=== PATIENT | male | born 1995 | race Caucasian/White ===

== ENCOUNTER 2018-12-19 21:01 | Emergency (ER) | payer MEDICAID ==
[~2018-12-19] VITALS: Ht 188 cm; Wt 86.2 kg
[2018-12-19] MEDS ORDERED: SODIUM CHLORIDE 0.9% 1,000 ML IV ONE (21:45)
[2018-12-19] MEDS ORDERED: ONDANSETRON HCL 4 MG/2 ML VIAL IV ONE (21:45)
[2018-12-19 21:47] LABS: Hemoglobin 19.4 g/dL (13.5-17.5); Mean Corpuscular Hemoglobin 27.7 pg (28.0-32.0); Mean Corpuscular Hgb Conc. 33.3 g/dL (32.0-36.0); Mean Corpuscular Volume 83.2 fL (80.0-100.0); Platelet Count (auto) 535 10^3/uL (140-450); Red Cell Distribution Width 14.1 % (11.8-14.3); White Blood Cell 28.4 10^3/uL (4.4-10.8)
[2018-12-19 21:52] LABS: Hematocrit 58.2 % (41.0-53.0)
[2018-12-19 21:53] LABS: Basophils % (manual) 0 (0.0-2.0); Blast Cells 0; Eosinophils % (manual) 0 (0-7); Metamyelocytes % 0; Myelocytes % 0; Promyelocytes % 0; Reactive Lymphocytes 0
[2018-12-19 22:00] LABS: Albumin 5.6 g/dL (3.4-5.0); BUN/Creatinine Ratio 6.6; Calcium 10.2 mg/dL (8.5-10.1)
[2018-12-19 22:07] LABS: Lactate Dehydrogenase 230 U/L (87-241); Lipase 407 U/L (73-393)
[2018-12-19 22:42] LABS: Band Neutrophils % (manual) 5; Lymphocytes % (manual) 8 (10.0-50.0); Monocytes % (manual) 11 (0-12)
[2018-12-19] MEDS ORDERED: cefTRIAXone 1GM/50ML D5W 50 ML IV ONE (23:00)
[2018-12-19] MEDS ORDERED: IOHEXOL 350 MG/ML 100ML IJ ONE (23:33)
[2018-12-19] MEDS ORDERED: GASTROGRAFIN 30 ML SOL ONE (23:33)
[2018-12-20] MEDS ORDERED: LEVOFLOXACIN 750MG 150 ML IV ONE (00:45)
[2018-12-20] MEDS ORDERED: SODIUM CHLORIDE 0.9% 2,000 ML IV ONE (02:30)
[2018-12-20] MEDS ORDERED: ONDANSETRON HCL 4 MG/2 ML VIAL IV ONE (04:00)
[2018-12-20 04:27] LABS: Urine Amorphous Crystal FEW /hpf (None Seen); Urine Bacteria FEW /hpf (None Seen); Urine Blood 2+ /uL (Negative); Urine Hyaline Cast MOD /lpf (0 - 2); Urine Mucus FEW (None Seen); Urine Specific Gravity 1.016 (1.001-1.035); Urine WBC 4 /hpf (0 - 3)
[2018-12-20 04:41] LABS: Alcohol, Urine < 3.0 mg/dL (0-5); Amphetamine Screen, Urine NEGATIVE (NEGATIVE); Barbiturate Scree,Urine NEGATIVE (NEGATIVE); Benzodiazephine Screen, Urine NEGATIVE (NEGATIVE); Cannabinoid Screen, Urine POSITIVE (NEGATIVE); Cocaine Screen, Urine NEGATIVE (NEGATIVE); Opiate Scree,Urine NEGATIVE (NEGATIVE)
[2018-12-20 04:48] LABS: Phencyclidine Screen, Urine NEGATIVE (NEGATIVE)
[2018-12-20 04:49] VITALS: BP 128/85
== END 2018-12-20 04:56 | disposition short-term general hospital (02) ==
LOC: ER 21:01
DX: R06.02 Shortness of breath (principal); R10.9 Unspecified abdominal pain; R11.2 Nausea with vomiting, unspecified; R53.1 Weakness
CPT/HCPCS: 36415; 51702; 71250; 74176; 80053; 80307; 81001; 83605; 83615; 83690; 84484; 85007; 85027; 87040; 93005; 96361; 96365; 96367; 96375; 96376; 99285; J0696; J1956; J2405; J7030; Q9963

== ENCOUNTER 2020-02-06 21:21 | Inpatient (IN) | payer MEDICAID ==
[~2020-02-06] VITALS: Ht 188 cm; Wt 77.1 kg
[~2020-02-06 21:21] MED LIST: VANCOMYCIN 1GM/250ML 250 ML IV ONE
[2020-02-06] MEDS ORDERED: ACETAMINOPHEN 325 MG TAB PO ONE (21:45)
[2020-02-06] MEDS ORDERED: SODIUM CHLORIDE 0.9% 2,300 ML IV ONE (22:15)
[2020-02-06] MEDS ORDERED: VANCOMYCIN PER PHARMACY 0 MG IV SCH (22:30)
[2020-02-06 23:23] LABS: Basophils # (auto) 0 10 ^3/uL (0-0.2); Basophils % (auto) 0.4 % (0.0-2.0); Eosinophils # (auto) 0 10 ^3/uL (0-0.8); Eosinophils % (auto) 0.4 % (0.0-7.0); Lymphocytes # (auto) 0.2 10 ^3/uL (0.4-5.4); Lymphocytes % (auto) 2.6 % (10.0-50.0); Mean Corpuscular Hemoglobin 27.2 pg (28.0-32.0); Mean Corpuscular Hgb Conc. 32.6 g/dL (32.0-36.0); Mean Corpuscular Volume 83.4 fL (80.0-100.0); Monocytes # (auto) 0.2 10 ^3/uL (0-1.3); Monocytes % (auto) 2.8 % (0.0-12.0); Neutrophils # (auto) 5.6 10 ^3/uL (1.6-8.6); Neutrophils % (auto) 93.8 % (37.0-80.0); Platelet Count (auto) 183 10^3/uL (140-450); Red Cell Distribution Width 16.4 % (11.8-14.3)
[2020-02-06 23:38] LABS: INR 1.18 (0.9-1.15); Partial Thromboplastin Time 26.1 sec (23.0-31.2)
[2020-02-06 23:41] LABS: Acetaminophen < 2.0 ug/mL (10-30); Albumin 2.9 g/dL (3.4-5.0); Anion Gap 9 (5-15); Blood Urea Nitrogen 10 mg/dL (7-18); Calcium 8.7 mg/dL (8.5-10.1); Carbon Dioxide 24 mmol/L (21-32); Chloride 106 mmol/L (98-107); Glucose 161 mg/dL (74-106); Salicylate < 1.7 mg/dL (2.8-20.0); Sodium 139 mmol/L (136-145)
[2020-02-06 23:42] LABS: Alanine Aminotransferase 466 U/L (16-61); Aspartate Aminotransferase 674 U/L (15-37); BUN/Creatinine Ratio 6.8; Blood Alcohol < 3.0 mg/dL (0-5); GFR African American 77 mL/min; GFR Non-African American 64 mL/min
[2020-02-06 23:47] LABS: Alkaline Phosphatase 125 U/L (45-117); Bilirubin, Total 0.9 mg/dL (0.2-1.0); Creatine Kinase IFCC 662 U/L (39-308); Total Protein 5.8 g/dL (6.4-8.2)
[2020-02-07] MEDS ORDERED: PIPERACILLIN-TAZOB 3.375GM 100 ML IV SCH
[2020-02-07 00:26] LABS: Lactic Acid w/Reflex 4.2 mmol/L (0.4-2.0)
[2020-02-07 01:35] LABS: Urine Bacteria NONE SEEN /hpf (None Seen); Urine Blood TRACE /uL (Negative); Urine Hyaline Cast MANY /lpf (0 - 2); Urine Mucus FEW (None Seen); Urine Specific Gravity 1.013 (1.001-1.035); Urine WBC 3 /hpf (0 - 3)
[2020-02-07 01:47] LABS: Alcohol, Urine < 3.0 mg/dL (0-10); Amphetamine Screen, Urine NEGATIVE (NEGATIVE); Barbiturate Scree,Urine NEGATIVE (NEGATIVE); Benzodiazephine Screen, Urine POSITIVE (NEGATIVE); Cannabinoid Screen, Urine POSITIVE (NEGATIVE)
[2020-02-07 02:13] LABS: Cocaine Screen, Urine NEGATIVE (NEGATIVE); Opiate Scree,Urine NEGATIVE (NEGATIVE); Phencyclidine Screen, Urine NEGATIVE (NEGATIVE)
[2020-02-07] MEDS ORDERED: ENOXAPARIN SOD 80 MG/0.8ML SYRINGE SC ONE (03:45)
[2020-02-07] MEDS ORDERED: POTASSIUM CHL 20MEQ/100ML 100 ML IV ONE (04:00)
[2020-02-07] MEDS ORDERED: PIPERACILLIN-TAZOB 2.25GM 50 ML IV SCH (06:00)
[2020-02-07] MEDS ORDERED: SODIUM CHLORIDE 0.9% 1,000 ML IV SCH (06:23)
[2020-02-07] MEDS ORDERED: ONDANSETRON HCL 4 MG/2 ML VIAL IV PRN (06:30)
[2020-02-07] MEDS ORDERED: MORPHINE SULF INJ 2 MG/ML SYRINGE 1ML IV PRN (06:30)
[2020-02-07] MEDS ORDERED: NITROGLYCERIN 0.4 MG SL TAB SL PRN (06:30)
[2020-02-07] MEDS ORDERED: IOHEXOL 350 MG/ML 100ML IJ ONE ×2 (07:24→08:20)
[2020-02-07 08:37] LABS: Albumin 2.8 g/dL (3.4-5.0); Calcium 8.7 mg/dL (8.5-10.1); Potassium 4.3 mmol/L (3.5-5.1)
[2020-02-07 08:39] LABS: Magnesium 1.7 mg/dL (1.6-2.6)
[2020-02-07 08:41] LABS: BUN/Creatinine Ratio 11.4; Bilirubin, Total 0.9 mg/dL (0.2-1.0); Total Protein 5.9 g/dL (6.4-8.2)
[2020-02-07 08:48] LABS: CRP High Sensitivity 8.53 mg/dL (< 0.3)
[2020-02-07] MEDS: ASPirin 81 mg TAB PO SCH (10:34)
[2020-02-07] MEDS: CHOLECALCIFEROL (VITD3) 2,000 UNIT CAP PO SCH (10:39)
[2020-02-07] MEDS: ZINC SULFATE 220mg CAP or TAB PO SCH (10:39)
[2020-02-07] MEDS: ASCORBIC ACID 1,000 MG TAB PO SCH (10:40)
[2020-02-07] MEDS: FAMOTIDINE 20 MG TAB PO SCH ×2 (10:40→22:00)
[2020-02-07] MEDS: ENOXAPARIN SOD 40 MG/0.4 ML SYRINGE SC SCH (11:05)
[2020-02-07] MEDS: DOXYCYCLINE 100MG/250ML 250 ML IV SCH ×2 (11:06→23:10)
[2020-02-07] MEDS: PIPERACILLIN-TAZOB 3.375GM 100 ML IV SCH ×2 (14:39→18:53)
[2020-02-07] MEDS ORDERED: ATORVASTATIN 20 MG TAB PO SCH (22:00)
[2020-02-08] MEDS: PIPERACILLIN-TAZOB 3.375GM 100 ML IV SCH ×4 (01:29→18:00)
[2020-02-08] MEDS: ASCORBIC ACID 1,000 MG TAB PO SCH (07:57)
[2020-02-08] MEDS: CHOLECALCIFEROL (VITD3) 2,000 UNIT CAP PO SCH (07:57)
[2020-02-08] MEDS: ZINC SULFATE 220mg CAP or TAB PO SCH (07:57)
[2020-02-08] MEDS: ENOXAPARIN SOD 40 MG/0.4 ML SYRINGE SC SCH (10:00)
[2020-02-08] MEDS: DOXYCYCLINE 100MG/250ML 250 ML IV SCH (10:27)
[2020-02-08] MEDS: ASPirin 81 mg TAB PO SCH (10:28)
[2020-02-08] MEDS: FAMOTIDINE 20 MG TAB PO SCH (10:28)
[2020-02-08 11:57] LABS: Monocytes # (auto) 1.9 10 ^3/uL (0-1.3)
[2020-02-08 11:59] LABS: Basophils # (auto) 0.1 10 ^3/uL (0-0.2); Basophils % (auto) 0.7 % (0.0-2.0); Eosinophils # (auto) 0.9 10 ^3/uL (0-0.8); Eosinophils % (auto) 4.2 % (0.0-7.0); Hematocrit 40.1 % (41.0-53.0); Hemoglobin 13.1 g/dL (13.5-17.5); Lymphocytes # (auto) 1.3 10 ^3/uL (0.4-5.4); Lymphocytes % (auto) 6.1 % (10.0-50.0); Mean Corpuscular Hemoglobin 26.8 pg (28.0-32.0); Mean Corpuscular Hgb Conc. 32.6 g/dL (32.0-36.0); Mean Corpuscular Volume 82.2 fL (80.0-100.0); Monocytes % (auto) 8.7 % (0.0-12.0); Neutrophils # (auto) 17.1 10 ^3/uL (1.6-8.6); Neutrophils % (auto) 80.3 % (37.0-80.0); Platelet Count (auto) 215 10^3/uL (140-450); Red Blood Cells 4.88 10^6/uL (4.5-5.90); Red Cell Distribution Width 16.4 % (11.8-14.3); White Blood Cell 21.3 10^3/uL (4.4-10.8)
[2020-02-08 12:15] LABS: Potassium 3.4 mmol/L (3.5-5.1)
[2020-02-08 12:20] LABS: Albumin 2.7 g/dL (3.4-5.0); BUN/Creatinine Ratio 9.1; Bilirubin, Total 0.4 mg/dL (0.2-1.0); Calcium 8.3 mg/dL (8.5-10.1); Total Protein 5.9 g/dL (6.4-8.2)
[2020-02-08] MEDS ORDERED: DOXY-346 PO (17:25)
[2020-02-08 18:12] VITALS: BP 127/83
[2020-02-10 13:43] LABS: Hepatitis A Ab IgM Negative
[2020-02-10 13:44] LABS: Hepatitis B Core IgM Negative; Hepatitis B Surface Antigen Negative (Negative); Hepatitis C Antibody Negative (Negative)
== END 2020-02-08 22:36 | disposition home or self-care (01) | DRG 812 ==
LOC: EDBD 21:21 → EDUNIT# 21:23 → ER 21:23 → TELE 21:24
PROVIDERS: ADMIT Nurse Practitioner; ATTEND Hospitalist
DX: T42.4X1A Poisoning by benzodiazepines, accidental (unintentional), initial encounter (principal); G93.41 Metabolic encephalopathy; E87.6 Hypokalemia; F41.9 Anxiety disorder, unspecified; Z20.828 Contact with and (suspected) exposure to other viral communicable diseases; F13.20 Sedative, hypnotic or anxiolytic dependence, uncomplicated
CPT/HCPCS: 36415; 71045; 71275; 76705; 80053; 80074; 80202; 80307; 80320; 80329; 81001; 82550; 82728; 83605; 83615; 83735; 83880; 84443; 84484; 85025; 85379; 85384; 85610; 85730; 86141; 86850; 86900; 86901; 87040; 87070; 87077; 87086; 87186; 87804; 87880; 93005; 93306; 96365; 96366; 96367; 96372; 99291; G0378; J2543; J3480; J3490